=== PATIENT | female | born 1990 | race American Indian/Alaskan Native ===

== ENCOUNTER 2016-07-10 20:44 | Emergency (ER) | payer MEDICAID ==
[2016-07-11 02:19] VITALS: BP 125/87
--- NOTE | 2016-07-12 13:32 | ED Elopement Review ---
ED Pt Elopement review - Call Back decision Pt Call Back Decision: No action required
== END 2016-07-11 03:45 | disposition left against medical advice (07) ==
LOC: ED 20:44
DX: O99.512 Diseases of the respiratory system complicating pregnancy, second trimester (principal); R06.00 Dyspnea, unspecified; R07.9 Chest pain, unspecified; J45.909 Unspecified asthma, uncomplicated; Z88.0 Allergy status to penicillin; Z53.21 Procedure and treatment not carried out due to patient leaving prior to being seen by health care provider
CPT/HCPCS: 93005; 93010